=== PATIENT | female | born 1955 | race Caucasian/White ===

== ENCOUNTER 2018-12-18 08:16 | Day surgery (SDC) | payer OTHER ==
[~2018-12-18 08:16] MED LIST: CATAFLAN PO; SYNTHROID75 MCG PO
== END 2018-12-18 17:10 | disposition home or self-care (01) ==
LOC: CIR.AMB 08:16
DX: M77.12 Lateral epicondylitis, left elbow (principal); S56.512A Strain of other extensor muscle, fascia and tendon at forearm level, left arm, initial encounter

== ENCOUNTER 2020-10-07 06:41 | Day surgery (SDC) | payer OTHER | END 2020-10-07 11:05 | disposition home or self-care (01) | LOC: AMB-ENDOS 06:41 | PROVIDERS: ATTEND Colon & Rectal Surgery | DX: K62.89 Other specified diseases of anus and rectum (principal); K64.0 First degree hemorrhoids; Z12.11 Encounter for screening for malignant neoplasm of colon; Z20.828 Contact with and (suspected) exposure to other viral communicable diseases ==